=== PATIENT | male | born 1995 | race Caucasian/White ===

== ENCOUNTER 2018-05-05 13:11 | Inpatient (IN) | payer OTHER ==
[~2018-05-05] VITALS: Ht 195.6 cm; Wt 111.6 kg
[2018-05-05 13:13] VITALS: BP 139/72
--- NOTE | 2018-05-05 13:15 | NUR ---
23m bib self with c/o 05/12 rlq abdomen pain that started at 10 am today with nausea and bl testicular pain. Patient denies any urinary complaints or diarrhea. Pt is aox4. RR are even and unlabored. Patient changed into gown and awaiting on er md yin. All needs met at this time. Will continue to monitor.
[2018-05-05] MEDS ORDERED: NACL 0.9% 1,000 ML IV ONE (14:21)
[2018-05-05] MEDS ORDERED: ONDANSETRON 4 MG/2 ML VIAL IVP ONE (14:25)
[2018-05-05] MEDS ORDERED: KETOROLAC 30 MG/ML VIAL IVP ONE (14:25)
[2018-05-05 14:56] LABS: BASOPHILS # (AUTO) 0.1 K/uL (0.00-0.22); BASOPHILS % (AUTO) 0.8 % (0.0-2.0); EOSINOPHILS # (AUTO) 0.1 K/uL (0-0.4); EOSINOPHILS % (AUTO) 0.7 % (0.0-4.0); HEMATOCRIT 46.7 % (36-52); HEMOGLOBIN 15.8 g/dL (12.0-18.0); LYMPHOCYTES % (AUTO) 20.1 % (20.5-51.1); MEAN CORPUSCULAR HEMOGLOBIN 28 pg (27-31); MEAN CORPUSCULAR HGB CONC 34 g/dL (33-37); MEAN CORPUSCULAR VOLUME 81.3 fL (80-94); MONOCYTES # (AUTO) 0.6 K/uL (0.8-1.0); MONOCYTES % (AUTO) 6.2 % (1.7-9.3); NEUTROPHILS # (AUTO) 7.3 K/uL (1.8-7.7); NEUTROPHILS % (AUTO) 72.2 % (42.2-75.2); PLATELET COUNT (AUTO) 303 K/uL (140-450); RED BLOOD CELL COUNT(AUTO) 5.74 MIL/uL (4.20-6.10); WHITE BLOOD COUNT (AUTO) 10.2 K/uL (4.8-10.8)
[2018-05-05 15:04] LABS: ANION GAP 15.8 (8-16); CARBON DIOXIDE 21.5 mmol/L (21-32); CREATININE 1.1 mg/dL (0.7-1.3); POTASSIUM 3.3 mmol/L (3.5-5.1)
[2018-05-05 15:10] LABS: ALBUMIN 4.4 g/dL (3.4-5.0); TOTAL BILIRUBIN 0.7 mg/dL (0.0-1.0)
--- NOTE | 2018-05-05 15:18 | NUR ---
awaiting ct results. ivf infusing without difficultly. plan of care explained and pt verbalized understanding. will continue to monitor.
[2018-05-05] MEDS ORDERED: NACL 0.9% 1,000 ML IV SCH (16:34)
[2018-05-05] MEDS ORDERED: ACETAMINOPHEN 325 MG TAB PO PRN (16:35)
[2018-05-05] MEDS ORDERED: ONDANSETRON 4 MG/2 ML VIAL IM/IVP PRN (16:35)
[2018-05-05] MEDS ORDERED: DOCUSATE SODIUM 100 MG GELCAP PO PRN (16:35)
--- NOTE | 2018-05-05 17:03 | NUR ---
Patient with no complaints. Friend by bedside. All needs met at this time. Awaiting admission bed. Will continue to monitor.
[2018-05-05 17:32] LABS: CHOL/HDL RATIO 4.4 (1-4.5); FREE T4 (FREE THYROXINE) 1.26 ng/dL (0.76-1.46); MAGNESIUM 1.8 mg/dL (1.8-2.4); PHOSPHORUS 0.9 mg/dL (2.5-4.9); THYROID STIMULATING HORMONE 0.81 uIU/mL (0.34-3.74)
--- NOTE | 2018-05-05 17:53 | NUR ---
Patient will be admitted to care of [facility]. Admited to Tele. Will go to room 106A. Belongings list completed. Bedside report to Treasure EPSTEIN.
[2018-05-05 18:00] VITALS: BP 139/82
--- NOTE | 2018-05-05 18:00 | NUR ---
RECEIVED PT FORM ER NURSE, MACI, VIA POPPY, PT IS AWAKE AND ALERT. VITAL SIGNS TAKEN AND IS STABLE, PLAN OF CARE WAS DISCUSSED AND PT VERBALIZED UNDERSTANDING. PT HAS AN IV LINE ON THE LEFT AC G. 20, SALINE LOCK. SIDE RAILS ARE UP AND CALL LIGHT WITHIN. REACH. PT WAS ADMITTED ON TELE AND IN PLACE. NO SIGN OF DISTRESS NOTED AND WILL CONTINUE TO MONITOR.
--- NOTE | 2018-05-05 18:05 | NUR ---
MRSA SWAB DONE TO THE PT AND SAMPLE WAS HANDED TO THE LABORATORY TECH NURSE, SUKUMAR TO FORWARD TO LAB.
--- NOTE | 2018-05-05 18:30 | NUR ---
PT WAS STARTED ON NS AT 60ML/HR. PT TOLERATED IT AND NO SIGN OF DISTRESS NOTED. WILL MONITOR.
--- NOTE | 2018-05-05 18:40 | NUR ---
DR. KERR CALLED AND ASKED INFORMATIONS ABOUT THE PT. DR. KERR MADE A TELEPHONE ORDER FOR A STAT STANDARD TYPE AND SCREEN. ORDER READ BACK, VERIFIED, AND ACKNOWLEDGED.
--- NOTE | 2018-05-05 18:49 | NUR ---
INFORMED THE PT'S MOTHER THAT THE PT WAS ADMITTED TODAY.
--- NOTE | 2018-05-05 18:54 | NUR ---
CALLED LAB AND INFORMED THAT DR. KERR ORDERED A STAT STANDARD TYPE AND SCREEN FOR THE PT.
--- NOTE | 2018-05-05 19:15 | NUR ---
PREPARED THE PRE-OPERATIVE CHECKLIST FOR THE PT, CONSENT WAS FORWARDED TO TIFF, OR NURSE AND INFORMED TIFF THAT THE PT WANTS TO SPEAK WITH DR. KERR PRIOR TO SIGNING THE CONSENT FOR SURGERY.
[2018-05-05] MEDS: HYDROcodone/APAP 7.5/325 MG 1 TAB PO PRN ×2 (19:16→23:36)
--- NOTE | 2018-05-05 19:16 | NUR ---
MORNING NURSE PREPARING OR PAPERWORK. PATIENT COMPLAINING OF ABDOMINAL PAIN AND NAUSEA. MEDICATED ORDERED. VITAL SIGNS WITHIN NORMAL LIMITS
--- NOTE | 2018-05-05 19:30 | NUR ---
GAVE REPORT ABOUT THE PT TO AIRLINE PILOT NURSE, SUKUMAR, PT WAS TAKEN BY THE OR NURSES FOR SURGERY.
--- NOTE | 2018-05-05 19:30 | NUR ---
PATIENT REPORT RECEIVED FROM MORNING NURSE. PATIENT IN OR GETTING PROCEDURE DONE.
[2018-05-05] MEDS ORDERED: PHENYLEPHRINE 10 MG/ML VIAL ONE (19:40)
[2018-05-05] MEDS ORDERED: DESFLURANE 240 ML BTL INH ONE (19:40)
[2018-05-05] MEDS ORDERED: SUCCINYLCHOLINE CHLORIDE 200 MG/10 ML VIAL IVP ONE (19:40)
[2018-05-05] MEDS ORDERED: ROCURONIUM 50 MG/5 ML VIAL IV ONE (19:40)
[2018-05-05] MEDS ORDERED: PROPOFOL 200 MG/20 ML VIAL IV ONE (19:40)
[2018-05-05] MEDS ORDERED: GLYCOPYRROLATE 0.2 MG/ML VIAL ONE (19:40)
[2018-05-05] MEDS ORDERED: fentaNYL 0.05 MG/ML VIAL ONE (19:46)
[2018-05-05] MEDS ORDERED: HYDROmorphone PFS 2 MG/ML SYR ONE (19:47)
[2018-05-05] MEDS ORDERED: BUPIVACAINE-MPF 0.25% 30 ML VIAL INJ ONE (19:47)
[2018-05-05] MEDS ORDERED: MORPHINE SULFATE 4 MG/ML SYR IVP PRN (20:55)
[2018-05-05] MEDS: DEXT 5% / NACL 0.45% 1,000 ML IV SCH (20:55)
[2018-05-05] MEDS ORDERED: HYDROmorphone 1 MG/ML AMP IVP PRN (21:05)
[2018-05-05] MEDS ORDERED: ONDANSETRON 4 MG/2 ML VIAL IVP PRN (21:05)
--- NOTE | 2018-05-05 21:30 | NUR ---
PATIENT RETURNED FROM OR
[2018-05-05 21:40] VITALS: BP 145/57
--- NOTE | 2018-05-05 21:40 | NUR ---
PATIENT REPORT RECEIVED FROM OR NURSE AT BEDSIDE. PATIENT IS AWAKE, ALERT AND ORIENTED. NO SIGNS AND SYMPTOMS OF DISTRESS NOTED. BREATHING EVEN AND UNLABORED. NO COMPLAINTS OF PAIN AT THIS TIME. 3 SURGICAL INCISIONS NOTED ON ABDOMEN. ONE ON LEFT UPPER ABDOMEN (2CM), ONE ON LEFT LOWER ABDOMEN (2CM) AND ONE ON LOWER MID ABDOMEN (1.5CM). INCISIONS COVERED WITH SURGICAL GLUE.
--- NOTE | 2018-05-05 21:45 | NUR ---
SPOKE TO PATIENT'S MOTHER KENNY ON THE PHONE. UPDATED HER ON SON'S CONDITION. SON SPOKE WITH MOTHER ON PHONE
[2018-05-05] MEDS: metroNIDAZOLE 500 MG/NS PREMIX 100 ML IV SCH (21:54)
[2018-05-05] MEDS: CEFAZOLIN SODIUM 1 GM/D5W PM 50 ML IV SCH (23:36)
[2018-05-06] VITALS: BP 121/63
--- NOTE | 2018-05-06 01:20 | NUR ---
PATIENT AMBULATED TO RESTROOM TO VOID. PATIENT AMBULATED BACK TO BED.
[2018-05-06 03:41] LABS: APPEARANCE,URINE SL CLOUDY (CLEAR); BILIRUBIN,URINE NEGATIVE (NEGATIVE); BLOOD, URINE NEGATIVE (NEGATIVE); COLOR,URINE YELLOW (YELLOW); LEUKOCYTE ESTERASE ,URINE NEGATIVE (NEGATIVE); NITRITE, URINE NEGATIVE (NEGATIVE); PH,URINE 5.5 (5.0-9.0); UGLUCOSE NEGATIVE (NEGATIVE)
[2018-05-06 03:50] LABS: BARBITURATE, URINE NEG. ng/ml (NEG <=200); BENZODIAZEPINE, URINE NEG. ng/mL (NEG <=200); CANNABINOID, URINE NEG. ng/mL (NEG <=50); COCAINE, URINE NEG. ng/mL (NEG <=300); OPIATE, URINE POS. ng/mL (NEG <=2000); PHENCYCLIDINE SCREEN,URINE NEG. ng/mL (NEG <=25)
[2018-05-06 04:00] VITALS: BP 117/60
[2018-05-06 04:01] LABS: RBC,URINE 0-5 (RARE) /HPF (0-5); WBC,URINE 0-5 (RARE) /HPF (0-5)
[2018-05-06] MEDS: metroNIDAZOLE 500 MG/NS PREMIX 100 ML IV SCH ×2 (04:23→14:34)
--- NOTE | 2018-05-06 04:27 | NUR ---
CHECKED ON PATIENT. PATIENT IS ASLEEP. NO SIGNS AND SYMPTOMS OF DISTRESS NOTED. BREATHING EVEN AND UNLABORED. WILL CONTINUE TO MONITOR
[2018-05-06] MEDS: CEFAZOLIN SODIUM 1 GM/D5W PM 50 ML IV SCH ×2 (05:54→13:06)
[2018-05-06 06:16] LABS: T4 (THYROXINE) 8.6 ug/dL (4.5-12.0)
[2018-05-06] MEDS: DEXT 5% / NACL 0.45% 1,000 ML IV SCH (06:45)
[2018-05-06 07:04] LABS: BASOPHILS % (AUTO) 0.4 % (0.0-2.0); HEMATOCRIT 39.5 % (36-52); HEMOGLOBIN 13.6 g/dL (12.0-18.0); LYMPHOCYTES # (AUTO) 1.1 K/uL (2.0-11.5); LYMPHOCYTES % (AUTO) 10.7 % (20.5-51.1); MEAN CORPUSCULAR HEMOGLOBIN 28 pg (27-31); MEAN CORPUSCULAR HGB CONC 34 g/dL (33-37); MEAN CORPUSCULAR VOLUME 82.5 fL (80-94); MONOCYTES # (AUTO) 0.7 K/uL (0.8-1.0); MONOCYTES % (AUTO) 6.3 % (1.7-9.3); NEUTROPHILS # (AUTO) 8.8 K/uL (1.8-7.7); NEUTROPHILS % (AUTO) 82.6 % (42.2-75.2); PLATELET COUNT (AUTO) 236 K/uL (140-450); RED BLOOD CELL COUNT(AUTO) 4.79 MIL/uL (4.20-6.10); RED CELL DISTRIBUTION WIDTH 13.4 % (11.6-13.7); WHITE BLOOD COUNT (AUTO) 10.7 K/uL (4.8-10.8)
--- NOTE | 2018-05-06 07:20 | NUR ---
PATIENT REPORT GIVEN TO MORNING NURSE AT BEDSIDE FOR CONTINUITY OF CARE. PATIENT IS IN STABLE CONDITION
--- NOTE | 2018-05-06 07:22 | NUR ---
PATIENT HAS BEEN SCREENED AND CATEGORIZED HIGH RISK DUE TO CONSULT RECEIVED FOR WOUNDS. PATIENT WILL BE SEEN WITHIN 1-2 DAYS OF ADMISSION. 05/07- [address], [facility]
--- NOTE | 2018-05-06 07:25 | NUR ---
RECEIVED PT FROM APPAREL CUTTER NURSE, SUKUMAR, PT IS AWAKE AND SEATED ON THE BED WITH A PERIPHERAL LINE ON THE LEFT AC G. 20., INTACT. WITH D5 1/2 NS RUNNING AT 1OOML/HR, INFUSING WELL. ELECTRICAL DESIGN TECHNOLOGIST RAILS ARE UP AND CALL LIGHT WITHIN REACH. NO SIGN OF DISTRESS NOTED AND PLAN OF CARE WAS DISCUSSED WITH THE PT AND PT VERBALIZED UNDERSTANDING.
[2018-05-06 07:55] LABS: ANION GAP 10.1 (8-16); CARBON DIOXIDE 26.6 mmol/L (21-32); CREATININE 1.1 mg/dL (0.7-1.3); POTASSIUM 4.7 mmol/L (3.5-5.1)
[2018-05-06 08:00] VITALS: BP 128/58
[2018-05-06] MEDS: SODIUM PHOS / POTASSIUM PHOS 1 PKT PDR PO SCH ×2 (08:43→13:06)
[2018-05-06] MEDS ORDERED: POTASSIUM CHLORIDE 10 MEQ TABER PO SCH (09:00)
--- NOTE | 2018-05-06 10:30 | NUR ---
PT WAS SEEN AND INCISION WAS ASSESSED BY DR. KERR AND SAID THAT THE INCISION LOOKS FINE.
[2018-05-06 12:00] VITALS: BP 137/66
[2018-05-06] MEDS ORDERED: ACET-8386 PO (14:00)
[2018-05-06 16:00] VITALS: BP 130/70
--- NOTE | 2018-05-06 16:10 | NUR ---
PT'S IV FLUID WAS STOPPED AND PT'S IV LINE WAS REMOVED.
--- NOTE | 2018-05-06 16:20 | NUR ---
DISCHARGED PT VIA WHEELCHAIR WITH FRIENDS. DISCHARGED INSTRUCTIONS AND PRESCRIPTION GIVEN TO THE PT AND PT VERBALIZED UNDERSTANDING. IV LINE AND ARM BANDS REMOVED. PT IS STABLE AT THIS TIME.
--- NOTE | 2018-05-07 08:38 | NUR ---
PER PEPE HAMPTON IN ADMITTING, FAX TO [phone], BETSY PETERSON. RETRO, ER REPORT, H&P, CONSULT , OPERATIVE REPORT AND DISCHARGE SUMMARY FAXED TO [facility]
--- NOTE | 2018-05-07 13:50 | NUR ---
WOUND CARE CONSULT NOT DONE. PT. DISCHARGED.
--- NOTE | 2018-05-11 16:07 | NUR ---
RECEIVED A CALL FROM NICHOLAS FROM [employer] [facility]. AUTH NUMBER FOR 05/05 TO 05/06 IS [id number]. LUCRETIA CRIME ANALYST INFORMED.
== END 2018-05-06 16:20 | disposition home or self-care (01) | DRG 343 ==
LOC: EDSEX 13:11 → MED 13:11 → MTU 16:38
PROVIDERS: ADMIT General Practice; ATTEND General Practice
PROC: 0DTJ4ZZ Resection of Appendix, Percutaneous Endoscopic Approach (ICD-10-PCS; principal; 2018-05-05 19:15)
DX: K35.80 Unspecified acute appendicitis (principal); E87.6 Hypokalemia; N50.819 Testicular pain, unspecified; E83.39 Other disorders of phosphorus metabolism; E78.5 Hyperlipidemia, unspecified; N50.3 Cyst of epididymis
CPT/HCPCS: 36415; 71045; 76870; 80048; 80053; 80305; 81001; 82150; 82374; 83036; 83690; 83735; 83880; 84100; 84436; 84439; 84443; 84479; 84484; 85025; 85610; 85730; 86886; 86900; 86901; 87040; 87081; 88304; 93005; 96361; 96374; 96375; 99285; J0330; J0690; J0694; J1170; J1885; J2270; J2370; J2405; J2704; J3010; J3490; J7030; J7042; Q0092